=== PATIENT | female | born 2000 | race Two or more races ===

== ENCOUNTER 2024-01-24 16:22 | Emergency (ER) | payer OTHER ==
[2024-01-24 16:35] VITALS: BP 113/75; PULSE 84; RESP 20; TEMP 98; BMI 24.0
[2024-01-24] MEDS ORDERED: ONDANSETRON 4 MG/2 ML VIAL ONE (16:55)
[2024-01-24] MEDS: ONDANSETRON 4 MG/2 ML VIAL IVPUSH ONE (17:11)
[2024-01-24] MEDS: SODIUM CHLORIDE 0.9% 500 ML INFUS.BAG IV ONE (17:11)
[2024-01-24 17:12] LABS: BASO % 0.2 % (0-2.0); HEMOGLOBIN 14.4 GM/dL (10.7-15.3); LYMPH % 10.9 % (8-40); MCH 32.5 pg (25.7-33.7); MEAN PLT VOLUME 6.8 fl (7.5-11.1); MONO % 3.9 % (3.8-10.2); PLATELET COUNT 408 10^3/uL (134-434); RBC 4.41 M/mm3 (3.60-5.2); RDW 12.8 % (11.6-15.6); WHITE BLOOD COUNT 11.7 K/mm3 (4.0-10.0)
[2024-01-24 17:33] LABS: POTASSIUM 4.2 mmol/L (3.5-5.1)
[2024-01-24 17:35] LABS: CALCIUM 9.5 mg/dL (8.5-10.1)
[2024-01-24 17:36] LABS: ALBUMIN 4.5 g/dl (3.4-5.0); BLOOD UREA NITROGEN 13.8 mg/dL (7-18)
[2024-01-24 17:39] LABS: CREATININE 0.7 mg/dL (0.55-1.3)
[2024-01-24 17:40] LABS: BILIRUBIN,TOTAL 1.7 mg/dL (0.2-1)
[2024-01-24 17:41] LABS: TOT PROT 7.8 g/dl (6.4-8.2)
[2024-01-24] MEDS ORDERED: FAMOTIDINE 20 MG/50 ML IVPB 20 MG/50 ML MG IVPB ONE (18:05)
[2024-01-24] MEDS: FAMOTIDINE 20 MG/50 ML IVPB 20 MG/50 ML MG IVPB ONE (18:05)
[2024-01-24] MEDS: MAG HYDROX/AL HYDROX/SIMETH 30 ML UNIT-DOSE CUP PO ONE (18:05)
[2024-01-24] MEDS ORDERED: MAG HYDROX/AL HYDROX/SIMETH 30 ML UNIT-DOSE CUP ONE (18:05)
[2024-01-24 18:29] LABS: HIV INTERPRETATION NEGATIVE (NEGATIVE)
== END 2024-01-24 19:46 | disposition home or self-care (01) ==
LOC: JER 16:22
PROC: 3E033GC Introduction of Other Therapeutic Substance into Peripheral Vein, Percutaneous Approach (ICD-10-PCS; principal; 2024-01-24)
PROC: 3E033GC Introduction of Other Therapeutic Substance into Peripheral Vein, Percutaneous Approach (ICD-10-PCS; 2024-01-24)
DX: R11.2 Nausea with vomiting, unspecified (principal); R10.10 Upper abdominal pain, unspecified; Z20.822 Contact with and (suspected) exposure to COVID-19
CPT/HCPCS: 0241U-QW; 36415; 76705-TC; 80053; 83690; 84703; 85025; 86803; 87389; 99284-25